=== PATIENT | male | born 1975 | race Caucasian/White ===

== ENCOUNTER 2021-03-03 11:56 | Emergency (ER) | payer OTHER | END 2021-03-03 14:20 | disposition home or self-care (01) | LOC: ER1 11:56 | DX: S01.81XA Laceration without foreign body of other part of head, initial encounter (principal); F10.10 Alcohol abuse, uncomplicated; Y90.9 Presence of alcohol in blood, level not specified; W19.XXXA Unspecified fall, initial encounter | CPT/HCPCS: 12001; 99282 ==